=== PATIENT | female | born 1990 | race Caucasian/White ===

== ENCOUNTER → 2018-12-08 | Outpatient (CLI) | payer MEDICAID ==
[~2018-12-08] MED LIST: BRIVIACT50 MG PO; CEPHALEXIN500 M1 PO; DEPAKOTE500 MG PO
== END ==
LOC: ZCOL.LAB 17:21
DX: R82.998 Other abnormal findings in urine (principal)

== ENCOUNTER 2018-12-09 17:59 | Emergency (ER) | payer MEDICAID ==
[~2018-12-09] VITALS: Ht 162.6 cm; Wt 89.4 kg
[2018-12-09 18:05] VITALS: TEMP 99
[2018-12-09 19:02] LABS: COLLECTION METHOD CLEAN CATCH
[2018-12-09] MEDS ORDERED: DEPAKOTE500 MG PO (19:02)
[2018-12-09 19:06] LABS: BASO # 0.1 (0.0-0.2); BASO % 0.6 % (0.0-2.0); EOS # 0.5 (0.0-0.7); EOS % 6.1 % (0-4.0); GRAN # 4.9 (1.4-6.5); GRAN % 54.8 % (42.2-75.2); HEMATOCRIT 39.8 % (37.0-47.0); HEMOGLOBIN 13.5 g/dl (12.5-16.0); LYMPH # 2.9 (1.2-3.4); LYMPH % 32.7 % (20.0-51.0); MEAN CELL VOLUME 89 fl (80.0-100.0); MEAN CORPUSCULAR HEMOGLOBIN 30 pg (27.0-31.0); MEAN CORPUSCULAR HGB CONC 34 g/dl (33.0-37.0); MEAN PLATELET VOLUME 10.5 fl (7.4-10.4); MONO # 0.5 (0.1-0.6); MONO % 5.5 % (1.7-9.3); PLATELET COUNT 206 K/mm3 (130-400); RED BLOOD COUNT 4.45 M/mm3 (4.10-5.30); REDCELL DISTRIBUTION WIDTH-CV 13.2 % (11.5-14.5)
[2018-12-09 19:08] LABS: MUCOUS Present /lpf; PH 6 (5-8); SQUAMOUS EPITHELIAL 0-2 /hpf; URINE APPEARANCE Clear; URINE BACTERIA None Seen /hpf; URINE BILIRUBIN Negative (NEGATIVE); URINE BLOOD Negative (NEGATIVE); URINE COLOR Yellow; URINE GLUCOSE Negative (NEGATIVE); URINE KETONE Trace (NEGATIVE); URINE LEUKOCYTE ESTERASE Negative (NEGATIVE); URINE NITRATE Negative (NEGATIVE); URINE PROTEIN(semi-quant) Negative (NEGATIVE); URINE RBC 0-2 /hpf; URINE UROBILINOGEN Negative (NEGATIVE)
[2018-12-09] MEDS ORDERED: BRIVIACT50 MG PO (19:22)
[2018-12-09 19:49] LABS: ALBUMIN 3.7 gm/dL (3.5-5.0); BILIRUBIN,TOTAL 0.2 mg/dL (0.0-1.0); C-REACTIVE PROTEIN 1.1 mg/dL (0.0-0.9); CALCIUM 8.9 mg/dL (8.4-10.2); CREATININE, serum 0.94 (0.52-1.25); POTASSIUM 3.7 mmol/L (3.4-5.0); TOTAL PROTEIN 6.5 gm/dL (6.4-8.2)
[2018-12-09 20:55] LABS: VALPROIC ACID (DEPAKENE) 77.5 ug/mL (50.0-100.0)
[2018-12-09] MEDS ORDERED: CEPHALEXIN500 M1 PO (21:33)
[2018-12-09 21:55] VITALS: BP 107/69; PULSE 85
== END 2018-12-09 21:55 | disposition home or self-care (01) ==
LOC: COL.ER 17:59
PROVIDERS: Emergency Medicine
DX: O21.9 Vomiting of pregnancy, unspecified (principal); O26.891 Other specified pregnancy related conditions, first trimester; R19.7 Diarrhea, unspecified; R10.9 Unspecified abdominal pain; Z3A.01 Less than 8 weeks gestation of pregnancy
CPT/HCPCS: J2550; J7030

== ENCOUNTER 2018-12-19 10:53 | Emergency (ER) | payer MEDICAID ==
[~2018-12-19] VITALS: Ht 162.6 cm; Wt 89.7 kg
[2018-12-19 10:57] VITALS: TEMP 97.5
[2018-12-19 11:31] LABS: COLLECTION METHOD CLEAN CATCH
[2018-12-19 12:04] LABS: BASO # 0.1 (0.0-0.2); BASO % 0.7 % (0.0-2.0); EOS # 0.3 (0.0-0.7); EOS % 2.8 % (0-4.0); GRAN # 5.7 (1.4-6.5); GRAN % 64.3 % (42.2-75.2); HEMATOCRIT 39.9 % (37.0-47.0); HEMOGLOBIN 13.9 g/dl (12.5-16.0); LYMPH # 2.1 (1.2-3.4); LYMPH % 23.8 % (20.0-51.0); MEAN CELL VOLUME 88 fl (80.0-100.0); MEAN CORPUSCULAR HEMOGLOBIN 31 pg (27.0-31.0); MEAN CORPUSCULAR HGB CONC 35 g/dl (33.0-37.0); MEAN PLATELET VOLUME 9.2 fl (7.4-10.4); MONO # 0.7 (0.1-0.6); MONO % 7.3 % (1.7-9.3); PLATELET COUNT 247 K/mm3 (130-400); RED BLOOD COUNT 4.55 M/mm3 (4.10-5.30); REDCELL DISTRIBUTION WIDTH-CV 12.8 % (11.5-14.5)
[2018-12-19 12:19] LABS: MUCOUS Present /lpf; PH 6 (5-8); URINE APPEARANCE Clear; URINE BACTERIA None Seen /hpf; URINE BILIRUBIN Negative (NEGATIVE); URINE BLOOD Negative (NEGATIVE); URINE COLOR Yellow; URINE GLUCOSE Negative (NEGATIVE); URINE KETONE Negative (NEGATIVE); URINE LEUKOCYTE ESTERASE 2+ (NEGATIVE); URINE NITRATE Negative (NEGATIVE); URINE PROTEIN(semi-quant) Negative (NEGATIVE); URINE RBC 0-2 /hpf; URINE UROBILINOGEN Negative (NEGATIVE)
[2018-12-19 12:39] LABS: ALBUMIN 4.1 gm/dL (3.5-5.0); BILIRUBIN,TOTAL 0.2 mg/dL (0.0-1.0); CALCIUM 9.5 mg/dL (8.4-10.2); CREATININE, serum 0.56 (0.52-1.25); POTASSIUM 3.9 mmol/L (3.4-5.0); TOTAL PROTEIN 7.4 gm/dL (6.4-8.2)
[2018-12-19] MEDS ORDERED: CEPHALEXIN500 M1 PO (14:30)
[2018-12-19 14:41] VITALS: BP 98/50; PULSE 70
== END 2018-12-19 14:41 | disposition home or self-care (01) ==
LOC: COL.ER 10:53
PROVIDERS: Family Medicine; Physician Assistant
DX: O46.90 Antepartum hemorrhage, unspecified, unspecified trimester (principal); O26.899 Other specified pregnancy related conditions, unspecified trimester; N64.4 Mastodynia; Z90.89 Acquired absence of other organs; Z3A.00 Weeks of gestation of pregnancy not specified

== ENCOUNTER 2019-01-15 18:17 | Emergency (ER) | payer MEDICAID ==
[~2019-01-15] VITALS: Ht 162.6 cm; Wt 90.0 kg
[2019-01-15 18:24] VITALS: TEMP 98.4
[2019-01-15] MEDS ORDERED: BRIVIACT50 MG PO (18:27)
[2019-01-15] MEDS ORDERED: PRENATAL (18:28)
[2019-01-15] MEDS ORDERED: VITAMIN D31000 I1 PO (18:28)
[2019-01-15] MEDS ORDERED: MACROBID 1100 MG/CAP PO (18:28)
[2019-01-15 18:41] LABS: BASO % 0.6 % (0.0-2.0); EOS # 0.4 (0.0-0.7); EOS % 6.4 % (0-4.0); GRAN # 3.8 (1.4-6.5); GRAN % 54.5 % (42.2-75.2); LYMPH # 2.1 (1.2-3.4); LYMPH % 30.7 % (20.0-51.0); MEAN CELL VOLUME 89 fl (80.0-100.0); MEAN CORPUSCULAR HEMOGLOBIN 31 pg (27.0-31.0); MEAN CORPUSCULAR HGB CONC 34 g/dl (33.0-37.0); MEAN PLATELET VOLUME 9.3 fl (7.4-10.4); MONO # 0.5 (0.1-0.6); MONO % 7.5 % (1.7-9.3); PLATELET COUNT 208 K/mm3 (130-400); RED BLOOD COUNT 3.91 M/mm3 (4.10-5.30); REDCELL DISTRIBUTION WIDTH-CV 13.6 % (11.5-14.5)
[2019-01-15 18:42] LABS: HEMATOCRIT 34.9 % (37.0-47.0)
[2019-01-15 18:49] LABS: ALBUMIN 3.4 gm/dL (3.5-5.0); BILIRUBIN,TOTAL 0.2 mg/dL (0.0-1.0); CALCIUM 8.9 mg/dL (8.4-10.2); CREATININE, serum 0.6 (0.52-1.25); POTASSIUM 3.7 mmol/L (3.4-5.0); TOTAL PROTEIN 6.3 gm/dL (6.4-8.2)
[2019-01-15 19:06] LABS: PROLACTIN 30.6 ng/mL (3.0-18.6)
[2019-01-15 19:07] LABS: COLLECTION METHOD CLEAN CATCH
[2019-01-15 19:21] LABS: MUCOUS Present /lpf; PH 7 (5-8); URINE APPEARANCE Cloudy; URINE BACTERIA None Seen /hpf; URINE BILIRUBIN Negative (NEGATIVE); URINE BLOOD Negative (NEGATIVE); URINE COLOR Yellow; URINE GLUCOSE Negative (NEGATIVE); URINE KETONE Negative (NEGATIVE); URINE LEUKOCYTE ESTERASE Trace (NEGATIVE); URINE NITRATE Negative (NEGATIVE); URINE PROTEIN(semi-quant) Negative (NEGATIVE); URINE RBC None Seen /hpf; URINE UROBILINOGEN Negative (NEGATIVE)
[2019-01-15] MEDS ORDERED: BRIVIACT100 MG PO (20:44)
[2019-01-15 20:55] VITALS: BP 108/61; PULSE 84
== END 2019-01-15 20:55 | disposition home or self-care (01) ==
LOC: COL.ER 18:17
PROVIDERS: Emergency Medicine
DX: O99.351 Diseases of the nervous system complicating pregnancy, first trimester (principal); G40.909 Epilepsy, unspecified, not intractable, without status epilepticus; Z3A.12 12 weeks gestation of pregnancy